=== PATIENT | male | born 1935 | race Caucasian/White ===

== ENCOUNTER → 2016-09-19 | Outpatient (CLI) | payer BC ==
[~2016-09-19] MED LIST: ASPIRIN81 MG PO; AUGMENTIN TAB875 MG PO; CREON DR 36,001 EACH PO; FAMOTIDINE40 MG PO; FLOMAX 0.4 MG0.4 MG PO; HYDROCHLOROTHIA25 MG PO; LISINOPRIL10 MG PO; METOPROLOL TART25 MG PO; NYSTATIN100000 UNI PO; PROBIOTIC1 EAC1 PO; ZYLOPRIM 100 M100 MG PO
[2016-09-19 10:19] LABS: HEMOGLOBIN 11.8 gm/dl (14.0-17.5); RED BLOOD COUNT 4.08 M/UL (4.20-5.50); WHITE BLOOD COUNT 8.3 K/UL (4.5-11.0)
[2016-09-19 10:42] LABS: BUN/CREATININE RATIO 16 (0-10)
== END ==
LOC: LAB 09:46
PROVIDERS: Emergency Medicine
DX: R60.0 Localized edema (principal)
CPT/HCPCS: 36415; 71020; 80053; 83735; 83880; 85027

== ENCOUNTER 2016-10-14 08:44 | Emergency (ER) | payer BC ==
[2016-10-14 09:59] LABS: HEMOGLOBIN 11.9 gm/dl (14.0-17.5); RED BLOOD COUNT 4.03 M/UL (4.20-5.50); WHITE BLOOD COUNT 10.5 K/UL (4.5-11.0)
[2016-10-14 10:08] LABS: BUN/CREATININE RATIO 28 (0-10)
== END 2016-10-14 15:20 | disposition home or self-care (01) ==
LOC: ER1 08:44
PROVIDERS: Emergency Medicine
DX: K57.92 Diverticulitis of intestine, part unspecified, without perforation or abscess without bleeding (principal)
CPT/HCPCS: 36415; 71010; 80053; 81001; 82550; 82553; 83605; 83690; 83874; 84484; 85025; 85610; 85730; 87040; 93005; 96361; 96365; 99284; J0696; J7050; Q9962

== ENCOUNTER 2016-10-18 15:01 | Inpatient (IN) | payer MEDICARE, BC ==
[~2016-10-18] VITALS: Ht 172.7 cm; Wt 74.8 kg
[2016-10-18 15:39] LABS: HEMOGLOBIN 11.7 gm/dl (14.0-17.5); RED BLOOD COUNT 3.94 M/UL (4.20-5.50); WHITE BLOOD COUNT 10.9 K/UL (4.5-11.0)
[2016-10-18 16:04] LABS: BUN/CREATININE RATIO 24 (0-10)
[2016-10-18] MEDS ORDERED: FLOMAX 0.4 MG0.4 MG PO (21:26)
[2016-10-18] MEDS ORDERED: AUGMENTIN TAB875 MG PO (21:28)
[2016-10-18] MEDS ORDERED: NYSTATIN100000 UNI PO (21:29)
[2016-10-18] MEDS ORDERED: CREON DR 36,001 EACH PO (21:29)
[2016-10-18] MEDS ORDERED: FAMOTIDINE40 MG PO (21:30)
[2016-10-18] MEDS ORDERED: ZYLOPRIM 100 M100 MG PO (21:30)
[2016-10-18] MEDS ORDERED: HYDROCHLOROTHIA25 MG PO (21:30)
[2016-10-18] MEDS ORDERED: LISINOPRIL10 MG PO (21:31)
[2016-10-18] MEDS ORDERED: PROBIOTIC1 EAC1 PO (21:31)
[2016-10-19 04:55] LABS: HEMOGLOBIN 10.3 gm/dl (14.0-17.5)
[2016-10-19 05:07] LABS: RED BLOOD COUNT 3.5 M/UL (4.20-5.50); WHITE BLOOD COUNT 7.2 K/UL (4.5-11.0)
[2016-10-19 05:15] LABS: BUN/CREATININE RATIO 18 (0-10)
[2016-10-20 04:48] LABS: HEMOGLOBIN 10.8 gm/dl (14.0-17.5); RED BLOOD COUNT 3.69 M/UL (4.20-5.50); WHITE BLOOD COUNT 7.1 K/UL (4.5-11.0)
[2016-10-20 05:05] LABS: BUN/CREATININE RATIO 18 (0-10)
[2016-10-20] MEDS ORDERED: ASPIRIN81 MG PO (13:01)
[2016-10-20] MEDS ORDERED: METOPROLOL TART25 MG PO (13:03)
== END 2016-10-20 13:52 | disposition home or self-care (01) | DRG 308 ==
LOC: ER1 15:01 → CCU 17:00 → ZEROF 17:00 → CCU 21:44
PROVIDERS: Emergency Medicine; ADMIT Emergency Medicine
DX: I48.91 Unspecified atrial fibrillation (principal); R57.1 Hypovolemic shock; A09 Infectious gastroenteritis and colitis, unspecified; I10 Essential (primary) hypertension; E78.5 Hyperlipidemia, unspecified; I45.10 Unspecified right bundle-branch block; K21.9 Gastro-esophageal reflux disease without esophagitis; K44.9 Diaphragmatic hernia without obstruction or gangrene; K22.70 Barrett's esophagus without dysplasia; K57.90 Diverticulosis of intestine, part unspecified, without perforation or abscess without bleeding; K64.8 Other hemorrhoids; K22.2 Esophageal obstruction; N40.0 Benign prostatic hyperplasia without lower urinary tract symptoms; R63.4 Abnormal weight loss; G47.30 Sleep apnea, unspecified; M10.9 Gout, unspecified; H91.90 Unspecified hearing loss, unspecified ear; D64.9 Anemia, unspecified; Z87.891 Personal history of nicotine dependence; Z87.442 Personal history of urinary calculi; Z68.25 Body mass index [BMI] 25.0-25.9, adult; Z79.82 Long term (current) use of aspirin; Z79.899 Other long term (current) drug therapy; Z90.49 Acquired absence of other specified parts of digestive tract; Z98.890 Other specified postprocedural states; Z82.49 Family history of ischemic heart disease and other diseases of the circulatory system
CPT/HCPCS: ECHO; 36415; 71010; 80048; 80053; 82272; 82550; 82553; 83735; 83874; 84439; 84443; 84484; 85025; 85027; 85610; 85730; 93005; 93306; 96374; 99291; J7030

== ENCOUNTER 2017-01-08 11:09 | Emergency (ER) | payer BC ==
[2017-01-08 11:32] LABS: HEMOGLOBIN 11.9 gm/dl (14.0-17.5); WHITE BLOOD COUNT 8.4 K/UL (4.5-11.0)
[2017-01-08 11:57] LABS: BUN/CREATININE RATIO 22 (0-10)
== END 2017-01-08 16:00 | disposition home or self-care (01) ==
LOC: ER1 11:09
PROVIDERS: Emergency Medicine
DX: R00.2 Palpitations (principal); R42 Dizziness and giddiness; I10 Essential (primary) hypertension
CPT/HCPCS: 36415; 70450; 71020; 80053; 81001; 82550; 82553; 83690; 83874; 84484; 85025; 85610; 85730; 87086; 93005; 99285

== ENCOUNTER → 2020-10-20 | Outpatient (CLI) | payer BC ==
[~2020-10-20] MED LIST changes: +AUGMENTIN 875-1 EACH PO; +BACTRIM DS TAB1 EACH PO; +DAILY VALUE1 EACH PO; +DESONIDE15 GM TP; +ELIQUIS5 MG PO; +EUTHYROX75 MCG PO; +FLOMAX0.4 MG PO; +LOPRESSOR 25 MG25 MG PO; +MYRBETRIQ25 MG PO
[2020-10-20 12:57] LABS: HEMOGLOBIN 13.4 gm/dl (14.0-17.5); RED BLOOD COUNT 4.49 M/UL (4.20-5.50); WHITE BLOOD COUNT 8.3 K/UL (4.5-11.0)
[2020-10-20 13:45] LABS: BUN/CREATININE RATIO 23 (0-10)
[2020-10-21 17:11] LABS: CHOLESTEROL, TOTAL 141 mg/dL (100-199); HDL SIZE 8.8 nm (>=9.2); HDL-C 28 mg/dL (>39); HDL-P (TOTAL) 23.6 umol/L (>=30.5); LARGE HDL-P 2.1 umol/L (>=4.8); LARGE VLDL-P 15.5 nmol/L (<=2.7); LDL SIZE 19.6 nm (>20.5); LDL SIZE 19.6 nm (>=20.8); LDL-C 79 mg/dL (0-99); LDL-P 953 nmol/L (<1000); LP-IR SCORE 81 (<=45); SMALL LDL-P 756 nmol/L (<=527); TRIGLYCERIDES 201 mg/dL (0-149); VLDL SIZE 59.5 nm (<=46.6)
== END ==
LOC: LAB 10:54
PROVIDERS: Emergency Medicine
DX: I10 Essential (primary) hypertension (principal); G47.19 Other hypersomnia; E78.2 Mixed hyperlipidemia; D50.9 Iron deficiency anemia, unspecified; R53.83 Other fatigue; G47.09 Other insomnia; E03.8 Other specified hypothyroidism; K86.1 Other chronic pancreatitis
CPT/HCPCS: 36415; 80053; 80061; 83704; 84443; 84550; 85025

== ENCOUNTER 2021-01-11 00:11 | Inpatient (IN) | payer BC, MEDICARE ==
[~2021-01-11] VITALS: Ht 185.4 cm; Wt 81.6 kg
[~2021-01-11 00:11] MED LIST changes: -AUGMENTIN 875-1 EACH PO; -BACTRIM DS TAB1 EACH PO; -DAILY VALUE1 EACH PO; -DESONIDE15 GM TP; -ELIQUIS5 MG PO; -EUTHYROX75 MCG PO; -FLOMAX0.4 MG PO; -LOPRESSOR 25 MG25 MG PO; -MYRBETRIQ25 MG PO
[2021-01-11 00:25] LABS: HEMOGLOBIN 13.1 gm/dl (14.0-17.5); RED BLOOD COUNT 4.31 M/UL (4.20-5.50); WHITE BLOOD COUNT 16.9 K/UL (4.5-11.0)
[2021-01-11 00:48] LABS: BUN/CREATININE RATIO 19 (0-10)
[2021-01-11] MEDS ORDERED: DESONIDE15 GM TP (10:50)
[2021-01-11] MEDS ORDERED: EUTHYROX75 MCG PO (10:51)
[2021-01-11] MEDS ORDERED: LOPRESSOR 25 MG25 MG PO (10:52)
[2021-01-11] MEDS ORDERED: BACTRIM DS TAB1 EACH PO (10:53)
[2021-01-11] MEDS ORDERED: ELIQUIS5 MG PO (10:54)
[2021-01-11] MEDS ORDERED: MYRBETRIQ25 MG PO (10:56)
[2021-01-11] MEDS ORDERED: FLOMAX0.4 MG PO (10:58)
[2021-01-11] MEDS ORDERED: DAILY VALUE1 EACH PO (11:12)
[2021-01-12 04:23] LABS: RED BLOOD COUNT 4.31 M/UL (4.20-5.50)
[2021-01-12 04:24] LABS: WHITE BLOOD COUNT 9.4 K/UL (4.5-11.0)
[2021-01-12 04:55] LABS: BUN/CREATININE RATIO 12 (0-10)
[2021-01-12] MEDS ORDERED: LOPRESSOR 25 MG25 MG PO (09:32)
[2021-01-12] MEDS ORDERED: AUGMENTIN 875-1 EACH PO (09:32)
== END 2021-01-12 11:45 | disposition home or self-care (01) | DRG 394 ==
LOC: ER1 00:11 → M/S 06:35 → CDU 06:35 → M/S 08:33
PROVIDERS: Family Medicine; Internal Medicine; Surgery; ADMIT Internal Medicine
DX: K35.80 Unspecified acute appendicitis (principal); J98.11 Atelectasis; I48.0 Paroxysmal atrial fibrillation; Z20.822 Contact with and (suspected) exposure to COVID-19; E03.9 Hypothyroidism, unspecified; D72.829 Elevated white blood cell count, unspecified; K21.9 Gastro-esophageal reflux disease without esophagitis; R63.0 Anorexia; K86.89 Other specified diseases of pancreas; Z79.899 Other long term (current) drug therapy; Z79.01 Long term (current) use of anticoagulants; Z90.49 Acquired absence of other specified parts of digestive tract; Z82.49 Family history of ischemic heart disease and other diseases of the circulatory system; Z87.891 Personal history of nicotine dependence
CPT/HCPCS: 36415; 71045; 80053; 81001; 82550; 82553; 83605; 83690; 83874; 83880; 84439; 84443; 84484; 85025; 86140; 87040; 93005; 96365; 99285; C9113; J1650; J2543; Q9967; U0002

== ENCOUNTER → 2021-01-27 | Outpatient (CLI) | payer BC ==
[~2021-01-27] MED LIST changes: +AUGMENTIN 875-1 EACH PO; +BACTRIM DS TAB1 EACH PO; +DAILY VALUE1 EACH PO; +DESONIDE15 GM TP; +ELIQUIS5 MG PO; +EUTHYROX75 MCG PO; +FLOMAX0.4 MG PO; +LOPRESSOR 25 MG25 MG PO; +MYRBETRIQ25 MG PO
[2021-01-27 10:57] LABS: HEMOGLOBIN 15.1 gm/dl (14.0-17.5); RED BLOOD COUNT 5.01 M/UL (4.20-5.50); WHITE BLOOD COUNT 8.7 K/UL (4.5-11.0)
[2021-01-27 11:19] LABS: BUN/CREATININE RATIO 15 (0-10)
== END ==
LOC: LAB 10:01
PROVIDERS: Emergency Medicine
DX: I10 Essential (primary) hypertension (principal); G47.19 Other hypersomnia; E78.2 Mixed hyperlipidemia; D50.9 Iron deficiency anemia, unspecified
CPT/HCPCS: 36415; 80053; 85025

== ENCOUNTER → 2021-03-30 | Outpatient (CLI) | payer BC ==
[2021-03-30 12:38] LABS: HEMOGLOBIN 13.6 gm/dl (14.0-17.5); RED BLOOD COUNT 4.5 M/UL (4.20-5.50); WHITE BLOOD COUNT 7.6 K/UL (4.5-11.0)
[2021-03-30 13:03] LABS: BUN/CREATININE RATIO 18 (0-10)
== END ==
LOC: LAB 10:22
PROVIDERS: Emergency Medicine
DX: I10 Essential (primary) hypertension (principal); G47.19 Other hypersomnia; E78.2 Mixed hyperlipidemia; D50.9 Iron deficiency anemia, unspecified
CPT/HCPCS: 36415; 80053; 85025

== ENCOUNTER → 2021-05-18 | Outpatient (CLI) | payer BC | LOC: KOH-I 11:01 | DX: M25.512 Pain in left shoulder (principal); W10.8XXA Fall (on) (from) other stairs and steps, initial encounter; M19.012 Primary osteoarthritis, left shoulder | CPT/HCPCS: 73030 ==

== ENCOUNTER 2021-06-07 23:15 | Emergency (ER) | payer BC | END 2021-06-08 02:04 | disposition home or self-care (01) | LOC: ER1 23:15 | DX: S09.90XA Unspecified injury of head, initial encounter (principal); S46.912A Strain of unspecified muscle, fascia and tendon at shoulder and upper arm level, left arm, initial encounter; I48.91 Unspecified atrial fibrillation; W01.10XA Fall on same level from slipping, tripping and stumbling with subsequent striking against unspecified object, initial encounter; Y92.009 Unspecified place in unspecified non-institutional (private) residence as the place of occurrence of the external cause | CPT/HCPCS: 70450; 72125; 73030; 99284 ==

== ENCOUNTER 2021-06-12 11:16 | Emergency (ER) | payer BC ==
[2021-06-12 12:26] LABS: HEMOGLOBIN 11.6 gm/dl (14.0-17.5); RED BLOOD COUNT 3.83 M/UL (4.20-5.50); WHITE BLOOD COUNT 11.1 K/UL (4.5-11.0)
[2021-06-12 12:58] LABS: BUN/CREATININE RATIO 20 (0-10)
== END 2021-06-12 16:59 | disposition short-term general hospital (02) ==
LOC: ER1 11:16
PROVIDERS: Emergency Medicine
DX: S06.5X0A Traumatic subdural hemorrhage without loss of consciousness, initial encounter (principal); Z79.01 Long term (current) use of anticoagulants; W19.XXXA Unspecified fall, initial encounter
CPT/HCPCS: 36430; 70450; 71045; 72125; 80053; 83605; 83735; 84100; 85025; 86900; 86901; 86927; 93005; 99285; J7030; J7050; P9017

== ENCOUNTER → 2021-08-31 | Outpatient (CLI) | payer BC ==
[2021-08-31 11:19] LABS: HEMOGLOBIN 12.5 gm/dl (14.0-17.5); RED BLOOD COUNT 4.34 M/UL (4.20-5.50); WHITE BLOOD COUNT 10.5 K/UL (4.5-11.0)
[2021-08-31 12:26] LABS: BUN/CREATININE RATIO 24 (0-10)
== END ==
LOC: LAB 10:43
PROVIDERS: Emergency Medicine
DX: I10 Essential (primary) hypertension (principal); E78.2 Mixed hyperlipidemia
CPT/HCPCS: 36415; 80053; 84443; 85025

== ENCOUNTER → 2021-10-30 | Outpatient (CLI) | payer BC ==
[2021-10-30 10:49] LABS: BUN/CREATININE RATIO 18 (0-10)
== END ==
LOC: LAB 09:51
PROVIDERS: Emergency Medicine
DX: I10 Essential (primary) hypertension (principal); E78.2 Mixed hyperlipidemia; E03.8 Other specified hypothyroidism; I48.21 Permanent atrial fibrillation
CPT/HCPCS: 36415; 80053

== ENCOUNTER → 2021-11-21 | Outpatient (CLI) | payer BC ==
[2021-11-21 10:39] LABS: BUN/CREATININE RATIO 20 (0-10)
== END ==
LOC: LAB 09:45
PROVIDERS: Emergency Medicine
DX: I10 Essential (primary) hypertension (principal); E78.2 Mixed hyperlipidemia; E03.8 Other specified hypothyroidism; I48.21 Permanent atrial fibrillation
CPT/HCPCS: 36415; 80053

== ENCOUNTER → 2022-01-19 | Outpatient (CLI) | payer BC ==
[2022-01-19 13:37] LABS: HEMOGLOBIN 12.3 gm/dl (14.0-17.5); RED BLOOD COUNT 4.4 M/UL (4.20-5.50)
[2022-01-19 14:17] LABS: BUN/CREATININE RATIO 18 (0-10)
== END ==
LOC: LAB 12:42
PROVIDERS: Emergency Medicine
DX: I10 Essential (primary) hypertension (principal); E78.2 Mixed hyperlipidemia; D50.8 Other iron deficiency anemias; E03.8 Other specified hypothyroidism
CPT/HCPCS: 36415; 80053; 84443; 85025

== ENCOUNTER → 2022-03-15 | Outpatient (CLI) | payer BC | LOC: RAD 13:43 | DX: R63.4 Abnormal weight loss (principal); K59.04 Chronic idiopathic constipation; R11.2 Nausea with vomiting, unspecified; R19.5 Other fecal abnormalities | CPT/HCPCS: 74018 ==

== ENCOUNTER → 2022-03-30 | Outpatient (CLI) | payer BC | LOC: MRI 08:46 | DX: R19.7 Diarrhea, unspecified (principal); R19.5 Other fecal abnormalities; R63.4 Abnormal weight loss; K86.81 Exocrine pancreatic insufficiency; R11.2 Nausea with vomiting, unspecified; K76.9 Liver disease, unspecified; R16.1 Splenomegaly, not elsewhere classified; K59.00 Constipation, unspecified | CPT/HCPCS: 74183; A9577 ==